=== PATIENT | male | born 1990 | race Two or more races ===

== ENCOUNTER 2025-02-12 23:30 | Emergency (ER) | payer SELFPAY ==
[~2025-02-12] VITALS: Ht 172.7 cm; Wt 78.6 kg
[2025-02-12 23:36] VITALS: BP 148/82; PULSE 89; RESP 18; O2SAT 96
--- NOTE | 2025-02-13 00:02 | Physician Documentation ---
History of Present Illness ~ Chief Complaint: Medical Clearance Stated Complaint: MED CLEARANCE Time Seen by MD: 23:58 Source: police Mode of Arrival: POV Exam Limitations: no limitations HPI Patient presents for right wrist pain. He was brought in by law enforcement. Per law enforcement in the course of the arrest his right wrist was turned laterally. He now has full ROM. C/o some numbness to the right thumb. Patient somewhat resistive to exam as he kept stating that he does not consent to having his blood drawn. Tetanus within 5 years?: No Medication Reconciliation Allergies: Coded Allergies: No Known Allergies (Unverified , 02/12/25) Review of Systems Constitutional: Reports: no symptoms reported Eyes: Reports: no symptoms reported ENT: Reports: no symptoms reported Respiratory: Reports: no symptoms reported Cardiovascular: Reports: no symptoms reported Gastrointestinal: Reports: no symptoms reported Genitourinary: Reports: no symptoms reported Male Genitalia: Reports: no symptoms reported Neurological: Reports: no symptoms reported Musculoskeletal: Reports: pain (wrist right) Integumentary: Reports: no symptoms reported Physical Exam Vital Signs: Temperature: 98.1, Source: Oral, Heart Rate: 89, Respiratory Rate: 18, BP: 148/82, Pulse Oximetry: 96, Weight: 78.640 Pulse Oximetry Reflects: adequate oxygenation Physical Exam General: Awake, alert. Extremities: The right wrist. Able to give best. Full range of motion while in handcuffs was examined. Complains of numbness to the thumb. There is no ecchymosis. Radial pulses plus two. Psychiatric: Somewhat combative. Does not follow directions. Skin: Normal color. Warm and dry. Progress Results/Orders Results/Orders Vital Signs 02/12/25 23:36 Temp 98.1 Pulse 89 Resp 18 B/P (MAP) 148/82 Pulse Ox 96 Medical Decision Making Findings Presented with law enforcement after resisting arrest. He complained of right wrist pain. His wrist was twisted laterally during the course of his arrest. He has full range of motion. Does complain of some numbness which he states are secondary to the handcuffs. There is no evidence of acute fracture or dislocation. Education was provided to follow up for x-ray of continued symptoms in one week. Departure Time of Disposition: 23:59 Disposition: 01 HOME / SELF CARE / HOMELESS Impression: Primary Impression: Wrist pain Condition: Stable Discharge Instructions: Wrist Pain, Adult, [id number] Additional Instructions: At this time no evidence on fracture or dislocation of your wrist. If you continue to have pain recommend that you follow up for x-ray after 1 weeks. From a medical standpoint cleared for incarceration. Referrals: NO PRIMARY CARE PROVIDER (PCP) Education Educated: Patient Educated regarding: diagnosis, treatment, need for follow up Signature Scribe Signature: no scribe Attestation: The note accurately reflects work and decisions made by me.Luba Guthrie NP 02/13/25 00:10 This note was created with the assistance of voice recognition software whereby errors in grammar, syntax, and/or spelling may have occurred despite active pro ofreading efforts by the author. Please do not hesitate to contact the provider for clarification or for questions regarding the content of this document. LUBA CAMILO NP Feb 13, 2025 00:02
[2025-02-13 00:09] VITALS: TEMP 98.1
== END 2025-02-13 00:10 ==
LOC: ER 23:31
DX: M25.531 Pain in right wrist (principal)
CPT/HCPCS: 99283